=== PATIENT | male | born 1965 | race Caucasian/White ===

== ENCOUNTER 2023-08-07 13:23 | Outpatient (CLI) | payer OTHER, SELFPAY | END 2023-08-07 13:24 | disposition home or self-care (01) | PROVIDERS: PCP Internal Medicine; Visit Provider Internal Medicine | DX: Z00.00 Encounter for general adult medical examination without abnormal findings (principal); Z13.6 Encounter for screening for cardiovascular disorders; Z12.5 Encounter for screening for malignant neoplasm of prostate | CPT/HCPCS: 80053; 80061; G0103 ==

== ENCOUNTER 2024-04-23 12:31 | Emergency (ER) | payer OTHER, SELFPAY ==
[2024-04-23 12:44] VITALS: BP 136/87; PULSE 77; RESP 18; TEMP 36.1; O2SAT 96; BMI 25.3
--- NOTE | 2024-04-23 13:29 | CRLHL7_ITS ---
For Patients: As a result of the Century Cures Act, medical imaging exams and procedure reports are released immediately into your electronic medical record. You may view this report before your referring provider. If you have questions, please contact your health care provider. Indication: Injury Technique: Left tibia and fibula 2 views. Comparison: None. Findings and impression: Oblique nondisplaced fracture through the proximal fibular shaft. Intramedullary sharon fixation of the tibia. Hardware is intact and without evidence of complication. Remote fracture deformity of the tibial midshaft. Plantar calcaneal enthesophyte. No significant soft tissue swelling of the lower extremity. Dictated by Mya Devine MD @ 04/23/2024 2:07:58 PM (Electronically Signed)
--- NOTE | 2024-04-23 16:21 | ED_ITS ---
HPI - General Adult General Date Seen: 04/23/24 Chief complaint: Extremity Pain/Injury, Lower Stated complaint: LT ankle injury at home Time Seen by Provider: 04/23/24 13:21 Source: patient Mode of arrival: ambulatory Limitations: no limitations History of Present Illness HPI narrative: Patient is a 58-year-old male who says a couple of weeks ago he hopped out of the bed of his truck, landed on a walnut and rolled his ankle. He can put up with things for week or so but was having persistent pain, was seen in urgent care a week ago and had x-rays of the ankle which were unremarkable. He was diagnosed with high ankle sprain and was given an Cheko wrap. He says he just does not feel like this is a normal ankle sprain, he still has pain and swelling in the ankle, he has pain in kind of the mid lateral lower leg. He does not feel like it has gotten any better the past 2 weeks. Related Data Home Medications ?Medication ?Instructions ?Recorded ?Confirmed ibuprofen 200 mg tablet 400 mg PO Q8H 01/03/24 01/03/24 Allergies Allergy/AdvReac Type Severity Reaction Status Date / Time No Known Allergies Allergy Unknown Verified 04/18/24 12:31 [facility] Medical History (Updated 04/23/24 @ 15:41 by Umm Rose) Closed fracture of right foot ?S92.901A - Unspecified fracture of right foot, initial encounter for closed fracture (ICD-10) Encounter related to worker's compensation claim ?Z02.6 - Encounter for examination for insurance purposes (ICD-10) Rotator cuff tear, right ?M75.101 - Unspecified rotator cuff tear or rupture of right shoulder, not specified as traumatic (ICD-10) Subacromial impingement of right shoulder ?M75.41 - Impingement syndrome of right shoulder (ICD-10) Screening due ?Z13.9 - Encounter for screening, unspecified (ICD-10) Surgical History (Updated 04/23/24 @ 15:43 by Umm Rose) History of arthroscopy of left knee (07/22/13) ?Z98.890 - Other specified postprocedural states (ICD-10) History of arthroscopy of left shoulder (06/27/17) ?Z98.890 - Other specified postprocedural states (ICD-10) Social History (Updated 08/09/23 @ 11:30 by Nadia Ramirez ~ PIA) What is your current living situation?: I presently have a place to live Problems where you live: no known problems In the past 12 months, utilities in danger of being shut off: no In past 12 months, lack of transportation kept you from medical appts, meetings, work, or getting things needed for daily living: no In the past 12 mos, have been you worried that your food would run out before you had money to buy more?: never true In the past 12 mos, the food you bought just didn't last and you didn't have money to buy more?: never true How often does anyone, including family, friends and others, physically hurt you : never How often does anyone, including family, friends and others, insult or talk down to you: never How often does anyone, including family, friends and others, threaten you with harm: never How often does anyone, including family, friends and others, scream or curse at you: never Little interest or pleasure in doing things: not at all Feeling down, depressed, or hopeless: not at all Exam Narrative: Exam Narrative: Vital signs reviewed In general, alert, well-appearing man. Extremities: Examination of the left lower extremity shows a little faint yellowish discoloration over the anterior jamison area, he has some bruising in the toes which looks related to gravity. He does not have any foot tenderness. He does have some tenderness in the ankle and has some tenderness over the proximal fibula. Const: Vital Signs, click to edit/add: Vital Signs - 24 hr 04/23/24 12:44 Temperature 97.0 F L Pulse Rate [Left P ulse Oximeter] 77 Respiratory Rate 18 Blood Pressure [Ri ght Upper Arm] 136/87 Pulse Oximetry 96 Oxygen Delivery Me thod Room Air Documenting provider has reviewed patient's vital signs: yes Course Course ED Course: He had x-rays of the tib-fib. The ankle continues to look unremarkable, but he does have a minimally displaced fracture of the proximal fibula. Final radiology read as follows:Patient: CHA RODRIGUEZ Facility: [facility] Site . Site : 1965 Study: XRay-Extremity Left tibia/fibula 2 views-04/23/2024 2:05:33 PM Ordering Physician: Samira Prescott Final Report: Indication: Injury Technique: Left tibia and fibula 2 views. Comparison: None. Findings and impression: Oblique nondisplaced fracture through the proximal fibular shaft. Intramedullary sharon fixation of the tibia. Hardware is intact and without evidence of complication. Remote fracture deformity of the tibial midshaft. Plantar calcaneal enthesophyte. No significant soft tissue swelling of the lower extremity. Dictated by Mya Devine MD @ 04/23/2024 2:07:58 PM I reviewed this with him. I recommended that we placement of splint today, get him followed up with orthopedics. I placed a U splint using Ortho Glass and three Cheko wraps, tolerated well. Will provide with crutches, toe-touch weight- bearing, orthopedic follow-up. 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 Vital Signs Vital signs: Initial Vital Signs Temperature 97.0 F L 04/23/24 12:44 Temperature Source Temporal Artery Scan 04/23/24 12:44 Pulse Rate 77 04/23/24 12:44 Pulse Rhythm Regular 04/23/24 12:44 Pulse Strength 3+ Normal 04/23/24 12:44 Respiratory Rate 18 04/23/24 12:44 Blood Pressure 136/87 04/23/24 12:44 Blood Pressure Mean 103 04/23/24 12:44 Blood Pressure Position Sitting 04/23/24 12:44 Pulse Oximetry 96 04/23/24 12:44 Oxygen Delivery Method Room Air 04/23/24 12:44 Vital Signs Temperature 97.0 F L 04/23/24 12:44 Pulse Rate 77 04/23/24 12:44 Respiratory Rate 18 04/23/24 12:44 Blood Pressure 136/87 04/23/24 12:44 Pulse Oximetry 96 04/23/24 12:44 Oxygen Delivery Method Room Air 04/23/24 12:44 Temperature 97.0 F L 04/23/24 12:44 Pulse Rate 77 04/23/24 12:44 Respiratory Rate 18 04/23/24 12:44 Blood Pressure 136/87 04/23/24 12:44 Pulse Oximetry 96 04/23/24 12:44 Oxygen Delivery Method Room Air 04/23/24 12:44 Medications Administered Medications: Discontinued Medications Generic Name Dose Route Start Last Admin Trade Name Ana PRN Reason Stop Dose Admin Insulin Human Regular 10 unit 04/23/24 13:39 04/23/24 13:42 Insulin Regular, Human 100 Unit/Ml Vial SUBCUT 04/23/24 13:40 Not Given ONCE ONE Discharge Plan Discharge Clinical Impression: Fracture of fibula, proximal, Ankle injury Patient Disposition: Home, Self-Care Condition: Stable Instructions: Leg Fracture (ED) Additional Instructions: Crutches, toe-touch weightbear. Orthopedic follow-up as scheduled. Elevate as able. Ibuprofen or Tylenol if needed. Off work as advised. Prescriptions: No Action ibuprofen 200 mg tablet 400 mg PO Q8H Follow Up/Referrals: Dar Toth MD [Primary Care Provider] - Stand Alone [facility] Info Instructions
== END 2024-04-23 15:22 | disposition home or self-care (01) ==
PROVIDERS: Emergency Provider Emergency Medicine; PCP Internal Medicine
DX: S82.434A Nondisplaced oblique fracture of shaft of right fibula, initial encounter for closed fracture (principal); X50.1XXA Overexertion from prolonged static or awkward postures, initial encounter
CPT/HCPCS: 29515; 73590; 99283; 99284

== ENCOUNTER 2024-09-03 08:08 | Outpatient (CLI) | payer OTHER, SELFPAY | END 2024-09-03 08:09 | disposition home or self-care (01) | LOC: MRI 08:09 | PROVIDERS: PCP Internal Medicine; Visit Provider Orthopaedic Surgery Sports Medicine | DX: S93.492S Sprain of other ligament of left ankle, sequela (principal); M25.472 Effusion, left ankle; S99.919A Unspecified injury of unspecified ankle, initial encounter | CPT/HCPCS: 73721 ==

== ENCOUNTER 2025-07-20 07:50 | Outpatient (CLI) | payer OTHER, SELFPAY | END 2025-07-20 07:51 | disposition home or self-care (01) | LOC: NFLDREF 07-22 12:56 | PROVIDERS: PCP Internal Medicine; Referring Provider Internal Medicine; Visit Provider Internal Medicine | DX: E78.5 Hyperlipidemia, unspecified (principal) | CPT/HCPCS: 80061 ==